=== PATIENT | male | born 1975 | race African-American/Black ===

== ENCOUNTER 2017-09-03 08:28 | Inpatient (IN) | payer OTHER ==
[~2017-09-03] VITALS: Ht 190.5 cm; Wt 132.9 kg
[2017-09-03 14:50] LABS: ABSOLUTE NEUTROPHILS 5.3 thou/uL (1.4-8.2); BASOPHILS 0.2 % (0.0-2.0); EOSINOPHILS 8.5 % (0.0-3.0); HEMATOCRIT 40.1 % (42.0-52.0); HEMOGLOBIN 13.3 gm/dL (14.0-18.0); LYMPHOCYTES 10.8 % (24.0-44.0); MCH 27.2 pg (26.0-34.0); MCHC 33.2 g/dL (28.0-37.0); MCV 81.7 fL (80.0-100.0); MONOCYTES 6.9 % (1.0-8.0); PLATELET COUNT 159 thou/uL (150-400); POLYS 73.6 % (36.0-66.0); RBC 4.91 mil/uL (4.50-6.00); RDW 14.1 % (10.5-14.5); WBC 7.2 thou/uL (4.0-11.0)
[2017-09-03 15:08] LABS: CALCIUM 9.2 mg/dL (8.5-10.1); CREATININE 1.1 mg/dL (0.7-1.3); POTASSIUM 3.9 mmol/L (3.5-5.1)
[2017-09-03 15:13] LABS: ALBUMIN 3.1 g/dL (3.4-5.0); MAGNESIUM 2.1 mg/dL (1.8-2.4); TOTAL BILIRUBIN 0.3 mg/dL (<0.1-1.0); TOTAL PROTEIN 7.6 g/dL (6.4-8.2)
[2017-09-03 16:34] LABS: URINE BILIRUBIN NEGATIVE (Negative); URINE BLOOD NEGATIVE (Negative); URINE CLARITY CLEAR; URINE COLOR YELLOW; URINE GLUCOSE-RANDOM* NEGATIVE (Negative); URINE KETONES NEGATIVE (Negative); URINE LEUKOCYTES-REFLEX NEGATIVE (Negative); URINE NITRITE-REFLEX NEGATIVE (Negative); URINE PROTEIN (DIPSTICK) NEGATIVE (Negative); URINE SPECIFIC GRAVITY 1.015 (1.005-1.035); URINE UROBILINOGEN 0.2 E.U./dl (0.2-1.0)
[2017-09-03 20:21] VITALS: BP 148/75
[2017-09-04 04:49] VITALS: BP 142/93
[2017-09-04 07:30] VITALS: BP 135/78
[2017-09-04 14:41] VITALS: BP 135/78
[2017-09-04] MEDS ORDERED: PROBIOTIC1 EAC1 PO (16:40)
[2017-09-04] MEDS ORDERED: KEFLEX500 M1 PO (16:40)
[2017-09-04 16:58] VITALS: BP 135/78
[2017-09-04 19:56] VITALS: BP 135/78
== END 2017-09-04 18:37 | disposition home or self-care (01) | DRG 602 ==
LOC: ULTRA 08:28 → 4E 13:08
PROVIDERS: Nurse Practitioner
DX: L03.115 Cellulitis of right lower limb (principal); E43 Unspecified severe protein-calorie malnutrition; Z88.0 Allergy status to penicillin; Z88.2 Allergy status to sulfonamides; Z83.3 Family history of diabetes mellitus; Z82.49 Family history of ischemic heart disease and other diseases of the circulatory system; Z87.891 Personal history of nicotine dependence
CPT/HCPCS: 10783